=== PATIENT | female | born 1975 | race Caucasian/White ===

== ENCOUNTER 2018-01-30 08:11 | Emergency (ER) | payer MEDICAID ==
[~2018-01-30] VITALS: Ht 162.6 cm; Wt 85.0 kg
[~2018-01-30 08:11] MED LIST: CALCIUM; FOLIC ACID; PRENATAL VITAMINS
[2018-01-30] MEDS ORDERED: LIDOCAINE HCL 1% 20ML VIAL (Pyxis) INJ MC ONE (10:45)
[2018-01-30] MEDS ORDERED: BACITRACIN ZINC OINT UDPKT TOP ONE (10:45)
[2018-01-30] MEDS ORDERED: LIDOCAINE HCL/PF 1% 10 MG/ML 5ML VIAL IJ ONE (11:15)
[2018-01-30] MEDS ORDERED: IBUPROFEN 600MG TABLET PO ONE (13:15)
[2018-01-30 13:30] VITALS: BP 132/82
== END 2018-01-30 13:48 | disposition home or self-care (01) ==
LOC: ER 08:11
DX: L02.212 Cutaneous abscess of back [any part, except buttock and flank] (principal)
CPT/HCPCS: 10060; 87070; 87205; 99284; J3490; Z7610

== ENCOUNTER 2018-02-01 07:09 | Emergency (ER) | payer MEDICAID ==
[~2018-02-01] VITALS: Ht 165.1 cm; Wt 85.0 kg
[2018-02-01 07:26] VITALS: BP 130/68
== END 2018-02-01 08:00 | disposition home or self-care (01) ==
LOC: ER 07:24
DX: Z48.00 Encounter for change or removal of nonsurgical wound dressing (principal)
CPT/HCPCS: 99282

== ENCOUNTER 2018-02-03 07:15 | Emergency (ER) | payer MEDICAID, OTHER ==
[~2018-02-03] VITALS: Ht 165.1 cm; Wt 85.0 kg
[2018-02-03 09:46] VITALS: BP 105/64
== END 2018-02-03 09:48 | disposition home or self-care (01) ==
LOC: ER 07:52
DX: L02.212 Cutaneous abscess of back [any part, except buttock and flank] (principal)
CPT/HCPCS: 99283; Z7610

== ENCOUNTER 2018-02-07 07:18 | Emergency (ER) | payer OTHER ==
[~2018-02-07] VITALS: Ht 165.1 cm; Wt 86.0 kg
[2018-02-07 07:30] VITALS: BP 106/47
== END 2018-02-07 10:30 | disposition home or self-care (01) ==
LOC: ER 07:18
DX: L02.212 Cutaneous abscess of back [any part, except buttock and flank] (principal)
CPT/HCPCS: 99283

== ENCOUNTER 2020-05-25 14:20 | Emergency (ER) | payer MEDICARE, OTHER ==
[~2020-05-25] VITALS: Ht 165.1 cm; Wt 69.0 kg
[2020-05-25] MEDS ORDERED: ACETAMINOPHEN 325MG TABLET PO ONE (15:45)
[2020-05-25] MEDS ORDERED: BACITRACIN ZINC OINT UDPKT TOP ONE (16:30)
[2020-05-25] MEDS ORDERED: LIDOCAINE 1%/EPI 1:100,000 10 ML VIAL IJ ONE (16:30)
[2020-05-25 17:57] VITALS: BP 133/70
== END 2020-05-25 17:58 | disposition home or self-care (01) ==
LOC: ER 14:20
DX: L02.212 Cutaneous abscess of back [any part, except buttock and flank] (principal); Z98.890 Other specified postprocedural states
CPT/HCPCS: 10060; 99283; J3490

== ENCOUNTER 2021-01-28 07:52 | Emergency (ER) | payer MEDICARE, OTHER ==
[~2021-01-28] VITALS: Ht 165.1 cm; Wt 75.0 kg
[2021-01-28 07:59] VITALS: BP 134/87
[2021-01-28] MEDS ORDERED: IBUP-2029 MT (09:14)
== END 2021-01-28 09:31 | disposition home or self-care (01) ==
LOC: ER 07:52
DX: S92.421A Displaced fracture of distal phalanx of right great toe, initial encounter for closed fracture (principal); X58.XXXA Exposure to other specified factors, initial encounter; Y93.9 Activity, unspecified; Y92.9 Unspecified place or not applicable
CPT/HCPCS: 73630; 99283